=== PATIENT | male | born 1980 | race Caucasian/White ===

== ENCOUNTER 2020-07-22 11:49 | Emergency (ER) | payer MEDICAID ==
[~2020-07-22] VITALS: Ht 172.7 cm; Wt 62.9 kg
[2020-07-22] MEDS ORDERED: LORA-269 PO ×2 (13:09→13:19)
[2020-07-22 13:51] VITALS: BP 116/70
== END 2020-07-22 13:52 | disposition home or self-care (01) ==
LOC: ER 11:53
DX: F41.0 Panic disorder [episodic paroxysmal anxiety] (principal); R42 Dizziness and giddiness; F41.9 Anxiety disorder, unspecified; Z56.0 Unemployment, unspecified; Z79.899 Other long term (current) drug therapy
CPT/HCPCS: 93005; 99283